=== PATIENT | male | born 1975 | race Caucasian/White ===

== ENCOUNTER 2016-10-03 13:28 | Emergency (ER) | payer MEDICARE, MEDICAID ==
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
[2016-10-03] MEDS ORDERED: IPRATROPIUM/ALBUTEROL (0.5MG/3MG) NEB INH ONE (14:47)
[2016-10-03] MEDS ORDERED: METHYLPREDNISOLONE PF 125MG/VIAL IVP ONE (14:47)
[2016-10-03 15:10] LABS: BASO % 0.9 % (0-6); EOS % 3.2 % (0-6); GRAN % 40.4 % (47-80); HEMATOCRIT 45.5 % (42.0-52.0); HEMOGLOBIN 15.6 gm/dl (14.0-18.0); MEAN CELL VOLUME 81.8 fl (81-97); MEAN CORPUSCULAR HEMOGLOBIN 28.1 pg (27-33); MEAN CORPUSCULAR HGB CONC 34.3 g/dl (32-36); MEAN PLATELET VOLUME 10.8 fl (7.4-10.4); MONO % 10.5 % (0-9); PLATELET COUNT 210 K/uL (130-400); RED BLOOD COUNT 5.56 M/uL (4.40-5.70); RED CELL DISTRIBUTION WIDTH 14.1 % (11.5-14.5); WHITE BLOOD COUNT W/O DIFF 3.4 K/uL (4.2-12.2)
[2016-10-03 15:22] LABS: ALB/GLOB RATIO 1.4 (1.1-1.8); ALBUMIN 4.6 gm/dL (3.5-5.0); ALKALINE PHOSPHATASE 57 U/L (38-126); ALT/SGPT 78 U/L (21-72); ANION GAP 14.4 (7-16); AST/SGOT 135 U/L (17-59); BILIRUBIN,TOTAL 0.34 mg/dL (0.2-1.3); BLOOD UREA NITROGEN 14 mg/dL (9-20); CARBON DIOXIDE 23.6 mmol/L (22-30); CREATININE 1.2 mg/dL (0.66-1.25); EST GLOMERULAR FILTRATION RATE > 60 ml/min; GLUCOSE,RANDOM 97 mg/dL (70-110); TOTAL PROTEIN 7.9 gm/dL (6.3-8.2)
[2016-10-03 15:35] LABS: TROPONIN I < 0.012 ng/mL (0.00-0.034)
== END 2016-10-03 16:18 | disposition home or self-care (01) ==
LOC: ER 13:28
DX: J06.9 Acute upper respiratory infection, unspecified (principal); R94.5 Abnormal results of liver function studies; R06.02 Shortness of breath; R07.9 Chest pain, unspecified; I10 Essential (primary) hypertension; F17.210 Nicotine dependence, cigarettes, uncomplicated
CPT/HCPCS: 71020; 80053; 83880; 84484; 85025; 93005; 93010; 94640; 96374; 99284; J2930

== ENCOUNTER 2016-12-05 20:28 | Emergency (ER) | payer MEDICARE, MEDICAID ==
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
[2016-12-05] MEDS: 0.9 % SODIUM CHLORIDE 1000ML 1,000 ML IV SCH (21:06)
[2016-12-05] MEDS: DIAZEPAM 5 MG/1 ML TUBX IVP ONE (21:06)
[2016-12-05 21:15] LABS: BASO % 0.4 % (0-6); EOS % 0.9 % (0-6); GRAN % 76.3 % (47-80); HEMATOCRIT 42.5 % (42.0-52.0); LYMPH % 14.7 % (16-45); MEAN CELL VOLUME 83.2 fl (81-97); MEAN CORPUSCULAR HEMOGLOBIN 27.4 pg (27-33); MEAN CORPUSCULAR HGB CONC 32.9 g/dl (32-36); MEAN PLATELET VOLUME 10.7 fl (7.4-10.4); MONO % 7.7 % (0-9); PLATELET COUNT 259 K/uL (130-400); RED BLOOD COUNT 5.11 M/uL (4.40-5.70)
[2016-12-05 21:26] LABS: LACTIC ACID 1.7 mmol/L (0.7-2.1)
[2016-12-05 21:27] LABS: CREATININE 1.5 mg/dL (0.66-1.25)
[2016-12-05 21:28] LABS: ALB/GLOB RATIO 1.4 (1.1-1.8); ALBUMIN 4.3 gm/dL (3.5-5.0); BILIRUBIN,TOTAL 0.4 mg/dL (0.2-1.3); TOTAL PROTEIN 7.4 gm/dL (6.3-8.2)
== END 2016-12-05 22:05 | disposition home or self-care (01) ==
LOC: ER 20:28
DX: G40.909 Epilepsy, unspecified, not intractable, without status epilepticus (principal); R51 Headache; I10 Essential (primary) hypertension; F17.210 Nicotine dependence, cigarettes, uncomplicated
CPT/HCPCS: 80053; 82550; 83605; 85025; 96361; 96374; 99284; J3360; J7030

== ENCOUNTER 2018-01-18 18:16 | Emergency (ER) | payer MEDICARE, MEDICAID ==
[2018-01-18] MEDS ORDERED: ONDANSETRON HCL IV 4 MG/2 ML VIAL IV ONE (18:48)
[2018-01-18] MEDS ORDERED: 0.9 % SODIUM CHLORIDE 1,000 ML BAG IV ONE ×2 (18:48→20:06)
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
[2018-01-18 19:15] LABS: BASO % 0.5 % (0-6); EOS % 1.6 % (0-6); GRAN % 60.4 % (47-80); HEMATOCRIT 44.5 % (42.0-52.0); HEMOGLOBIN 14.7 gm/dl (14.0-18.0); LYMPH % 28.8 % (16-45); MEAN CELL VOLUME 84.4 fl (81-97); MEAN CORPUSCULAR HEMOGLOBIN 27.9 pg (27-33); MEAN PLATELET VOLUME 10.4 fl (7.4-10.4); MONO % 8.7 % (0-9); PLATELET COUNT 262 K/uL (130-400); RED BLOOD COUNT 5.27 M/uL (4.40-5.70); RED CELL DISTRIBUTION WIDTH 14.7 % (11.5-14.5); WHITE BLOOD COUNT W/O DIFF 6.1 K/uL (4.2-12.2)
[2018-01-18 19:23] LABS: BLOOD UREA NITROGEN 15 mg/dL (6-20)
[2018-01-18 19:24] LABS: CREATININE 1.3 mg/dL (0.7-1.2); EST GLOMERULAR FILTRATION RATE > 60 mL/min; TOTAL PROTEIN 7.1 g/dL (6.6-8.7)
[2018-01-18 19:26] LABS: GLUCOSE,RANDOM 97 mg/dL (74-109)
[2018-01-18 19:29] LABS: ALBUMIN 4.2 g/dL (4.0-5.0); ALKALINE PHOSPHATASE 57 U/L (40-129); ALT/SGPT 16 U/L (<41); AST/SGOT 17 U/L (10.0-50.0); LIPASE 26 U/L (13-60)
[2018-01-18 19:30] LABS: BILIRUBIN,DIRECT < 0.2 mg/dL (0-0.3)
[2018-01-18] MEDS ORDERED: ACETAMINOPHEN 500 MG TABLET PO ONE (19:47)
[2018-01-18 21:02] LABS: URINE APPEARANCE CLEAR; URINE BILIRUBIN NEGATIVE (NEGATIVE); URINE BLOOD NEGATIVE (NEGATIVE); URINE COLOR YELLOW; URINE GLUCOSE (UA) NEGATIVE (NEGATIVE); URINE KETONE NEGATIVE (NEGATIVE); URINE LEUKOCYTE ESTERASE NEGATIVE (NEGATIVE); URINE NITRITE NEGATIVE (NEGATIVE); URINE PROTEIN NEGATIVE (NEGATIVE); URINE UROBILINOGEN 0.2 E.U./dL (0.20 - 1.00)
[2018-01-18 21:23] LABS: CRYPTOSPORIDIUM PARVUM ANTIGEN NOT DETECTED (NOT DETECT); GIARDIA LAMBLIA ANTIGEN NOT DETECTED (NOT DETECT); ROTOVIRUS NOT DETECTED (NOT DETECT)
[2018-01-18 22:10] LABS: MOLECULAR C DIFF TOXIN SCREEN NOT DETECTED (NOT DETECT)
--- NOTE | 2018-01-20 12:52 | CT SCAN REPORT ---
DATE: 01/18/2018 at 9:02 p.m. EXAM: CT OF THE ABDOMEN AND PELVIS WITH CONTRAST. HISTORY: Abdominal pain with some vomiting and diarrhea for the past four days. TECHNIQUE: Axial CT scan of the abdomen and pelvis was performed following both oral and intravenous contrast administration, utilizing a dose of 100 mL of Omnipaque 300 for the intravenous contrast. COMPARISON: CT of the abdomen and pelvis 12/14/2009. FINDINGS: No calcified gallstones are seen within the gallbladder. No definite hepatic, splenic, adrenal, pancreatic, or renal mass identified. Oral contrast given is passed throughout the bowel to the rectum with no bowel obstruction evident. Segments of the colon have a mildly thick-walled appearance which may simply be due to incomplete distension including the rectum. The appendix is opacified with contrast and appears negative with no appendicitis evident. Mildly thick-walled appearance of the urinary bladder may also simply be due to incomplete distension, although this could also be seen with a cystitis. Correlation with urinalysis is suggested. The lung bases appear clear. No free intraperitoneal air or free intraperitoneal fluid evident. IMPRESSION: 1. NO APPENDICITIS EVIDENT. NO FREE AIR OR FREE FLUID EVIDENT. 2. MILDLY DIFFUSELY THICK-WALLED APPEARANCE OF THE URINARY BLADDER MAY JUST BE DUE TO INCOMPLETE DISTENSION, BUT CORRELATION WITH URINALYSIS TO EXCLUDE A CYSTITIS IS SUGGESTED. 3. THICK-WALLED APPEARANCE OF THE SEGMENTS OF THE BOWEL, including THE RECTUM, NONSPECIFIC, ALTHOUGH PRESUMABLY JUST DUE TO INCOMPLETE DISTENSION. JOB NUMBER: [id number] MTDD
== END 2018-01-18 22:43 | disposition home or self-care (01) ==
LOC: ER 18:16
DX: R10.84 Generalized abdominal pain (principal); R11.2 Nausea with vomiting, unspecified; R19.7 Diarrhea, unspecified; F17.210 Nicotine dependence, cigarettes, uncomplicated
CPT/HCPCS: 74177; 80048; 80076; 81003; 82272; 83690; 85025; 87329; 87425; 87427; 87493; 89055; 96361; 96374; 99284; J2405; J7030

== ENCOUNTER 2018-09-20 16:05 | Emergency (ER) | payer MEDICARE, MEDICAID ==
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
--- NOTE | 2018-09-22 18:15 | RADIOLOGY REPORT ---
EXAM: KNEE, LEFT 3 VIEWS HISTORY: PAIN. TECHNIQUE: Four views of the left knee. FINDINGS: Mild medial compartment narrowing is present. There are no fractures. There is no effusion or malalignment. IMPRESSION: MILD DJD. JOB NUMBER: [id number] [facility]
== END 2018-09-20 17:12 | disposition home or self-care (01) ==
LOC: ER 16:05
DX: M25.562 Pain in left knee (principal); M25.462 Effusion, left knee; I10 Essential (primary) hypertension; F17.210 Nicotine dependence, cigarettes, uncomplicated
CPT/HCPCS: 99283

== ENCOUNTER 2018-10-29 12:36 | Emergency (ER) | payer MEDICARE, MEDICAID ==
[2018-10-29 13:02] LABS: URINE BILIRUBIN NEGATIVE (NEGATIVE); URINE BLOOD LARGE (NEGATIVE); URINE COLOR YELLOW; URINE GLUCOSE (UA) NEGATIVE (NEGATIVE); URINE KETONE NEGATIVE (NEGATIVE); URINE LEUKOCYTE ESTERASE NEGATIVE (NEGATIVE); URINE NITRITE NEGATIVE (NEGATIVE); URINE PROTEIN NEGATIVE (NEGATIVE); URINE UROBILINOGEN 0.2 E.U./dL (0.20 - 1.00)
[2018-10-29 13:03] LABS: URINE APPEARANCE CLOUDY
[2018-10-29 13:13] LABS: URINE BACTERIA 1+; URINE EPITHELIAL CELLS 0 - 2 (FEW); URINE WBC 0 - 2 (0-2/hpf)
[2018-10-29] MEDS ORDERED: CIPROFLOXACIN HCL 500 MG TABLET PO ONE (13:46)
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
[2018-10-29 13:59] LABS: BASO % 0.5 % (0-6); EOS % 2.2 % (0-6); HEMATOCRIT 44.6 % (42.0-52.0); HEMOGLOBIN 15.3 gm/dl (14.0-18.0); MEAN CELL VOLUME 83.1 fl (81-97); MEAN CORPUSCULAR HEMOGLOBIN 28.5 pg (27-33); MEAN CORPUSCULAR HGB CONC 34.3 g/dl (32-36); MEAN PLATELET VOLUME 10.6 fl (7.4-10.4); MONO % 7.3 % (0-9); PLATELET COUNT 239 K/uL (130-400); RED BLOOD COUNT 5.37 M/uL (4.40-5.70); RED CELL DISTRIBUTION WIDTH 14.6 % (11.5-14.5); WHITE BLOOD COUNT W/O DIFF 5.6 K/uL (4.2-12.2)
[2018-10-29 14:13] LABS: BLOOD UREA NITROGEN 17 mg/dL (6-20); CREATININE 1.3 mg/dL (0.7-1.2); EST GLOMERULAR FILTRATION RATE > 60 mL/min
[2018-10-29 14:15] LABS: GLUCOSE,RANDOM 95 mg/dL (74-109)
== END 2018-10-29 14:31 | disposition home or self-care (01) ==
LOC: ER 12:36
DX: N30.01 Acute cystitis with hematuria (principal); I10 Essential (primary) hypertension; F17.210 Nicotine dependence, cigarettes, uncomplicated
CPT/HCPCS: 80048; 81001; 85025; 99283

== ENCOUNTER 2019-03-11 17:37 | Emergency (ER) | payer MEDICARE ==
[2019-03-11] MEDS ORDERED: DIAZEPAM (VALIUM) 5MG/ML **10ML VIAL IM ONE (18:40)
[2019-03-11] MEDS ORDERED: KETOROLAC 60 MG/2 ML VIAL IM STA (18:40)
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
== END 2019-03-11 20:28 | disposition home or self-care (01) ==
LOC: ER 17:37
DX: S39.012A Strain of muscle, fascia and tendon of lower back, initial encounter (principal); X50.0XXA Overexertion from strenuous movement or load, initial encounter; Y92.009 Unspecified place in unspecified non-institutional (private) residence as the place of occurrence of the external cause; I10 Essential (primary) hypertension; F17.210 Nicotine dependence, cigarettes, uncomplicated
CPT/HCPCS: 96372; 99284; J1885; J3360